=== PATIENT | female | born 1950 | race Hispanic/Latino ===

== ENCOUNTER 2017-08-30 15:36 | Inpatient (IN) | payer MEDICARE, BC ==
[2017-08-30] MEDS ORDERED: Albuterol-Ipratrop 3 mg / 0.5 (3 ml) UD INH STA ×3 (16:11→17:56)
[2017-08-30 16:33] LABS: ABG ALLEN TEST YES; ARTERIAL BLOOD GAS HCO3 39.6 mmol/L (21-28); ARTERIAL BLOOD GAS O2 SAT 90.3 % (95-98); ARTERIAL BLOOD GAS PCO2 86 mm/Hg (35-45); ARTERIAL BLOOD GAS PH 7.37 (7.35-7.45); ARTERIAL BLOOD GAS PO2 44 mm/Hg (80-100); ARTERIAL BLOOD GAS TCO2 52.3 mmol/L (22-28)
[2017-08-30 16:44] LABS: BASO % 0.4 % (0.0-2.0); EOS # 0.1 K/uL (0.0-0.7); EOS % 1.3 % (0.0-4.0); HEMOGLOBIN 9.6 g/dL (12.0-16.0); LYMPH # 2.1 K/uL (1.0-4.3); LYMPH % 21.9 % (20.0-40.0); MEAN CELL VOLUME 82.1 fl (81.0-99.0); MEAN CORPUSCULAR HEMOGLOBIN 24.2 pg (27.0-31.0); MEAN CORPUSCULAR HGB CONC 29.4 g/dL (33.0-37.0); MEAN PLATELET VOLUME 7.4 fl (7.2-11.7); MONO # 0.8 K/uL (0.0-0.8); MONO % 8.3 % (0.0-10.0); NEUT # 6.7 K/uL (1.8-7.0); NEUT % 68.1 % (50.0-75.0); RBC 3.99 Mil/uL (3.80-5.20); WHITE BLOOD COUNT 9.8 K/uL (4.8-10.8)
[2017-08-30 17:01] LABS: PARTIAL THROMBOPLASTIN TIME 28.5 Seconds (25.6-37.1)
--- NOTE | 2017-08-30 17:13 | ED PDOC ---
HPI: SOB/CHF/COPD Time Seen by Provider: 08/30/17 15:51 Chief Complaint (Nursing): Shortness Of Breath Chief Complaint (Provider): Shortness of breath History Per: Patient History/Exam Limitations: no limitations Onset/Duration Of Symptoms: Days (x2) Current Symptoms Are (Timing): Still Present Additional Complaint(s): 67 year old female presents to the ED complaining of having worsening SOB for the past 2 days. Daughter says patient seems lethargic with generalized weakness and sleepy. Patient is on 2L O2 at home. She is also complaining of diarrhea for 3 days and abdominal pain but is not currently on any antibiotics. Denies fever, CP, cough, nausea, and vomiting. Past Medical History Reviewed: Historical Data, Nursing Documentation, Vital Signs Vital Signs: Last Vital Signs Temp 98.2 F 09/01/17 12:00 Pulse 122 H 09/01/17 12:00 Resp 18 09/01/17 12:00 BP 110/67 09/01/17 12:00 Pulse Ox 92 L 09/01/17 12:00 - Medical History PMH: Anemia, CAD, CHF, COPD, Diabetes (type II), Emphysema, HTN, Kidney Stones, Peripheral Edema, Pneumonia (X 4), Chronic Kidney Disease, Sleep Apnea Denies: Hyperthyroidism, Hypothyroidism - Surgical History Surgical History: Cholecystectomy, Coronary Stent, Tonsillectomy Denies: Pacemaker - Family History Family History: States: Diabetes - Social History Current smoker - smoking cessation education provided: No Ex-Smoker (has not smoked in the last 12 months): Yes Alcohol: None Drugs: Denies - Home Medications Home Medications: Ambulatory Orders Medication Instructions Recorded Clopidogrel [Plavix] 75 mg PO DAILY 01/29/16 Furosemide [Lasix] 40 mg PO DAILY 01/29/16 Liraglutide [Victoza 3-Hira] 1.8 mg SQ DAILY 01/29/16 Valsartan [Diovan] 40 mg PO DAILY 01/29/16 Ferrous Sulfate [Ferosul] 325 mg PO BID 01/30/16 Aspirin [Ecotrin] 81 mg PO DAILY 08/30/17 Cetirizine HCl [Zyrtec] 10 mg PO DAILY 08/30/17 Dapagliflozin Propanediol [Farxiga] 10 mg PO DAILY 08/30/17 Empagliflozin/Metformin HCl 1 each PO DAILY 08/30/17 [Synjardy Xr 12.5-1,000 mg Tab] Ergocalciferol (Vitamin D2) 1.25 mg PO QWK 08/30/17 [Vitamin D2] Escitalopram [Lexapro] 20 mg PO DAILY 08/30/17 Ezetimibe/Simvastatin [Vytorin 1 tab PO DAILY 08/30/17 10-10 mg Tablet] Glipizide [Glipizide Xl] 5 mg PO BID 08/30/17 Glycopyrrolate/Formoterol Fum 10.7 gm IH BID 08/30/17 [Bevespi Aerosphere Inhaler] Icosapent Ethyl [Vascepa] 2 cap PO BID 08/30/17 Linaclotide [Linzess] 145 mcg PO DAILY 08/30/17 Pantoprazole Sodium [Protonix] 40 mg PO DAILY 08/30/17 Pregabalin [Lyrica] 50 mg PO DAILY 08/30/17 Vortioxetine Hydrobromide 10 mg PO HS 08/30/17 [Trintellix] - Allergies Allergies/Adverse Reactions: Allergies Allergy/AdvReac Type Severity Reaction Status Date / Time No Known Allergies Allergy Verified 08/30/17 15:38 Review of Systems ROS Statement: Except As Marked, All Systems Reviewed And Found Negative Constitutional: Positive for: Weakness (generalized), Other (Lethargic). Negative for: Fever Cardiovascular: Negative for: Chest Pain Respiratory: Positive for: Shortness of Breath. Negative for: Cough Gastrointestinal: Positive for: Abdominal Pain, Diarrhea. Negative for: Nausea , Vomiting Physical Exam - Reviewed Nursing Documentation Reviewed: Yes Vital Signs Reviewed: Yes - Physical Exam Appears: Positive for: Non-toxic, No Acute Distress (speaking full sentences) Head Exam: Positive for: ATRAUMATIC, NORMOCEPHALIC Skin: Positive for: Normal Color, Warm, Dry Eye Exam: Positive for: Normal appearance Neck: Positive for: Normal, Painless ROM Cardiovascular/Chest: Positive for: Regular Rate, Rhythm. Negative for: Murmur Respiratory: Positive for: Wheezing (Bilateral) Gastrointestinal/Abdominal: Positive for: Soft, Other (morbidly obese). Negative for: Tenderness Extremity: Positive for: Normal ROM Neurologic/Psych: Positive for: Alert, Oriented (x3). Negative for: Motor/ Sensory Deficits - Laboratory Results Result Diagrams: 09/01/17 11:11 09/01/17 11:11 - ECG Interpretation Of ECG: NSR @ 91, LAD, RBBB. O2 Sat by Pulse Oximetry: 92 (RA) Pulse Ox Interpretation: Abnormal Medical Decision Making Medical Decision Making: Initial Impression: COPD exacerbation, diarrhea Initial Plan: ABG shock panel CT abd/pelvis ECG CMP Troponin ED urine dipstick CBC PTT Prothrombin Chest X-ray Albuterol 3mL INH Methylprednisolone 125mg IV Bipap procedure Peak flow Urinalysis Accession No. : [id number] Patient Name / ID : SIMONE DEGROOT / [id number] Exam Date : 08/30/2017 16:19:16 ( Approved ) Study Comment : Sex / Age : F / 67Y Creator : Mic Humphries MD Dictator : Mic Humphries MD Resolution Expert : Snow Groomer : Mic Humphries MD Approver2 : Report Date : 08/30/2017 17:44:20 My Comment : HISTORY: SOB COMPARISON: Chest radiograph dated 11/29/2016. FINDINGS: LUNGS: No active pulmonary disease. PLEURA: No significant pleural effusion identified, no pneumothorax apparent. CARDIOVASCULAR: Atherosclerotic aortic calcifications. Cardiomediastinal silhouette stably enlarged. OSSEOUS STRUCTURES: Unchanged. VISUALIZED UPPER ABDOMEN: Normal. OTHER FINDINGS: None. IMPRESSION: No active disease. Scribe Attestation: Documented by Vitaliy Rose acting as a scribe for Tran Sanchez MD. Provider Scribe Attestation: All medical record entries made by the Scribe were at my direction and personally dictated by me. I have reviewed the chart and agree that the record accurately reflects my personal performance of the history, physical exam, medical decision making, and the department course for this patient. I have also personally directed, reviewed, and agree with the discharge instructions and disposition. Disposition - Clinical Impression Clinical Impression: COPD exacerbation, CHF (congestive heart failure) - Patient ED Disposition Is Patient to be Admitted: Yes - Disposition Disposition Time: 18:20 Condition: GUARDED - Pt Status Changed To: Hospital Disposition Of: Inpatient - Admit Certification Admit to Inpatient:: After my assessment, the patient will require hospitalization for at least two midnights. This is because of the severity of symptoms shown, intensity of services needed, and/or the medical risk in this patient being treated as an outpatient. - POA Present On Arrival: None
[2017-08-30 17:15] LABS: ALB/GLOB RATIO 1.1 (1.0-2.1); ALT/SGPT 29 U/L (9-52); AST/SGOT 27 U/L (14-36); BLOOD UREA NITROGEN 17 mg/dl (7-17); CALCIUM 9.5 mg/dL (8.4-10.2); GFR AFRICAN-AMERICAN > 60; GFR NON-AFRICAN AMERICAN > 60
[2017-08-30] MEDS ORDERED: Iohexol 300 100 ML IJ ONE (17:20)
[2017-08-30] MEDS ORDERED: Sodium Chloride 0.9% 100 ML ONE (17:20)
--- NOTE | 2017-08-30 17:45 | RAD ---
HISTORY: SOB COMPARISON: Chest radiograph dated 11/29/2016. FINDINGS: LUNGS: No active pulmonary disease. PLEURA: No significant pleural effusion identified, no pneumothorax apparent. CARDIOVASCULAR: Atherosclerotic aortic calcifications. Cardiomediastinal silhouette stably enlarged. OSSEOUS STRUCTURES: Unchanged. VISUALIZED UPPER ABDOMEN: Normal. OTHER FINDINGS: None. IMPRESSION: No active disease.
--- NOTE | 2017-08-30 18:10 | CT ---
PROCEDURE: CT Abdomen and Pelvis with contrast HISTORY: Diarrhea COMPARISON: None. TECHNIQUE: Contrast dose: 95 cc Omnipaque 300 Radiation dose: Total exam DLP = 1052.88 mGy-cm. This CT exam was performed using one or more of the following dose reduction techniques: Automated exposure control, adjustment of the mA and/or kV according to patient size, and/or use of iterative reconstruction technique. FINDINGS: LOWER THORAX: Unremarkable. LIVER: Hepatomegaly, hepatic steatosis. No focal hepatic abnormalities. GALLBLADDER AND BILE DUCTS: Status post cholecystectomy. No abnormality is seen in the gallbladder fossa. PANCREAS: Unremarkable. No gross lesion or ductal dilatation. SPLEEN: Unremarkable. ADRENALS: Unremarkable. No mass. KIDNEYS AND URETERS: Right kidney in ureter: Nonobstructing 7 mm calculus in the right renal pelvis. Incidental simple cysts the largest projects off the inferior aspect of the right kidney measuring 2.2 cm. Left kidney in ureter: Unremarkable. No hydronephrosis. No solid mass. VASCULATURE: Unremarkable. No aortic aneurysm. Incidental finding(s): Persistent left IVC common normal variant BOWEL: Diverticulosis without an acute inflammatory component or other associated pathologic process. Constipation without fecal impaction or obstruction. APPENDIX: No abnormalities to suggest acute appendicitis. No right lower quadrant inflammatory processes identified. PERITONEUM: Unremarkable. No free fluid. No free air. LYMPH NODES: Unremarkable. No enlarged lymph nodes. BLADDER: Unremarkable. REPRODUCTIVE: Unremarkable. BONES: No acute fracture. OTHER FINDINGS: Inflammatory changes sub gluteal regions bilaterally. Decubitus ulcers should be considered particularly on the right. No drainable collection or sinus tract or fistulous communication. IMPRESSION: Nonobstructing 7 mm calculus in the right renal pelvis. Hepatomegaly, hepatic steatosis without focal abnormality. Additional benign and/or incidental findings described above.
[2017-08-30 19:42] LABS: SQUAMOUS EPITHIAL 2 /hpf (0-5); URINE BILIRUBIN NEGATIVE (NEGATIVE); URINE BLOOD NEGATIVE (NEGATIVE); URINE CLARITY CLEAR (Clear); URINE COLOR YELLOW (YELLOW); URINE GLUCOSE (UA) >=500 mg/dL (Normal); URINE LEUKOCYTE ESTERASE NEG Leu/uL (Negative); URINE PROTEIN NEGATIVE (NEGATIVE); URINE UROBILINOGEN 0.2-1.0 mg/dL (0.2-1.0)
[2017-08-30] MEDS ORDERED: Ergocalciferol 50,000 Intl Units Cap PO SCH (22:00)
[2017-08-30] MEDS ORDERED: Dextrose 50% SYRINGE Inj (50 ml) IV PRN (23:06)
[2017-08-30] MEDS: Insulin Regular 100 units/ml SC SCH (23:45)
[2017-08-31] MEDS ORDERED: methylPREDNISolone 60 MG in Sodium Chloride 0.9% 50 ML IVPB SCH (01:00)
[2017-08-31] MEDS: Insulin Regular 100 units/ml SC SCH ×4 (07:04→22:20)
[2017-08-31] MEDS: Albuterol-Ipratrop 3 mg / 0.5 (3 ml) UD INH SCH ×4 (07:46→19:09)
[2017-08-31] MEDS ORDERED: FORMOTEROL FUM IH SCH (09:00)
[2017-08-31] MEDS ORDERED: GlipiZIDE 5 mg SR Tab PO SCH (09:00)
[2017-08-31] MEDS ORDERED: GLYCOPYRROLATE IH SCH (09:00)
[2017-08-31] MEDS ORDERED: METFORMIN HCL PO SCH (09:00)
[2017-08-31] MEDS ORDERED: EZETIMIBE PO SCH (09:00)
[2017-08-31] MEDS ORDERED: LIRAGLUTIDE 1.8 MG SQ SCH (09:00)
[2017-08-31] MEDS ORDERED: Enoxaparin 40 mg Syringe SC SCH (09:00)
[2017-08-31] MEDS ORDERED: SIMVASTATIN PO SCH (09:00)
[2017-08-31] MEDS ORDERED: EMPAGLIFLOZIN PO SCH (09:00)
--- NOTE | 2017-08-31 09:47 | CP.PCM.CON ---
History of Present Illness - History of Present Illness History of Present Illness: I was asked to see patient by Dr Joshi. Patient is a 67 year old female with PMH HTN, CAD s/p PCI RCA (2011) COPD who presents with dyspnea. She states symptom began about 4 days ago. She flelt dyspneic and lethargic. She was found to be hypercapneic. She states symptom are improved. Review of Systems - Constitutional Constitutional: absent: As Per HPI, Anorexia, Chills, Daytime Sleepiness, Excessive Sweating, Fatigue, Fever, Frequent Falls, Headache, Increased Appetite , Lethargy, Malaise, Night Sweats, Snoring, Sleep Apnea, Weight Gain, Weight Loss, Weakness, Other - EENT Eyes: absent: As Per HPI, Blind Spots, Blurred Vision, Change in Vision, Decreased Night Vision, Diplopia, Discharge, Dry Eye, Exophthalmos, Floaters, Irritation, Itchy Eyes, Loss of Peripheral Vision, Pain, Photophobia, Requires Corrective Lenses, Sees Flashes, Spots in Vision, Tunnel Vision, Other Visual Disturbances, Loss of Vision, Other Ears: absent: As Per HPI, Decreased Hearing, Ear Discharge, Ear Pain, Tinnitus, Abnormal Hearing, Disequilibrium, Dizziness, Other Nose/Mouth/Throat: absent: As Per HPI, Epistaxis, Nasal Congestion, Nasal Discharge, Nasal Obstruction, Nasal Trauma, Nose Pain, Post Nasal Drip, Sinus Pain, Sinus Pressure, Bleeding Gums, Change in Voice, Dental Pain, Dry Mouth, Dysphagia, Halitosis, Hoarsness, Lip Swelling, Mouth Lesions, Mouth Pain, Odynophagia, Sore Throat, Throat Swelling, Tongue Swelling, Facial Pain, Neck Pain, Neck Mass, Other - Cardiovascular Cardiovascular: absent: As Per HPI, Acrocyanosis, Chest Pain, Chest Pain at Rest , Chest Pain with Activity, Claudication, Diaphoresis, Dyspnea, Dyspnea on Exertion, Edema, Irregular Heart Rhythm, Pain Radiating to Arm/Neck/Jaw, Leg Edema, Leg Ulcers, Lightheadedness, Orthopnea, Palpitations, Paroxysmal Nocturnal Dyspnea, Pedal Edema, Radiating Pain, Rapid Heart Rate, Slow Heart Rate, Syncope, Other - Respiratory Respiratory: Dyspnea - Gastrointestinal Gastrointestinal: absent: As Per HPI, Abdominal Pain, Belching, Bloating, Change in Bowel Habits, Change in Stool Character, Coffee Ground Emesis, Constipation, Cramping, Diarrhea, Dyspepsia, Dysphagia, Early Satiety, Excessive Flatus, Fecal Incontinence, Heartburn, Hematemesis, Hematochezia, Loose Stools, Melena, Nausea, Odynophagia, Temesmus, Vomiting, Other - Genitourinary Genitourinary: absent: As Per HPI, Change in Urinary Stream, Difficulty Urinating, Dysuria, Flank Pain, Hematuria, Pyuria, Nocturia, Urinary Incontinence, Urinary Frequency, Urinary Hesitance, Urinary Urgency, Voiding Freq/Small Amts, Freq UTI, Hx Renal/Bladder Calculi, Hx /Renal Surgery, Bladder Distension, Other - Musculoskeletal Musculoskeletal: absent: As Per HPI, Abnormal Gait, Arthralgias, Atrophy, Back Pain, Deformity, Joint Swelling, Limited Range of Motion, Loss of Height, Muscle Cramps, Muscle Weakness, Myalgias, Neck Pain, Numbness, Radiating Pain into Limb, Stiffness, Tingling, Other - Integumentary Integumentary: absent: As Per HPI, Acne, Alopecia, Bleeding Lesions, Change in Hair, Change in Nails, Change in Pigmentation, Changing Lesions, Dry Skin, Erythema, Furuncle, Hirsutism, Lesions, New Lesions, Non-Healing Lesions, Photosensitivity, Pruritus, Rash, Skin Pain, Skin Ulcer, Sores, Striae, Swelling , Unusual Bruising, Wounds, Jaundice, Other - Neurological Neurological: absent: As Per HPI, Abnormal Gait, Abnormal Hearing, Abnormal Movements, Abnormal Speech, Behavioral Changes, Burning Sensations, Confusion, Convulsions, Disequilibrium, Dizziness, Numbness, Focal Weakness, Frequent Falls , Headaches, Lack of Coordination, Loss of Vision, Memory Loss, Paresthesias, Radicular Pain, Restless Legs, Sensory Deficit, Syncope, Tingling, Tremor, Vertigo, Weakness, Other Visual Disturbances, Other - Psychiatric Psychiatric: absent: As Per HPI, Abnormal Sleep Pattern, Anhedonia, Anxiety, Auditory Hallucinations, Behavioral Changes, Change in Appetite, Change in Libido, Confusion, Depression, Difficulty Concentrating, Hallucinations, Homicidal Ideation, Hopelessness, Irritability, Memory Loss, Mood Swings, Panic Attacks, Paranoia, Suicidal Ideation, Visual Hallucinations, Tactile Hallucinations, Other - Endocrine Endocrine: absent: As Per HPI, Change in Body Appearance, Change in Libido, Cold Intolorance, Deepening of Voice, Excessive Sweating, Fatigue, Flushing, Heat Intolorance, Increase in Ring/Shoe/Hat Size, Palpitations, Polydipsia, Polyphagia, Polyuria, Other - Hematologic/Lymphatic Hematologic: absent: As Per HPI, Easy Bleeding, Easy Bruising, Lymphadenopathy, Other Past Patient History - Past Medical History & Family History Past Medical History?: Yes - Past Social History Smoking Status: Former Smoker - CARDIAC Hx Cardiac Disorders: Yes Hx Congestive Heart Failure: Yes Hx Hypertension: Yes Hx Pacemaker: No Hx Peripheral Edema: Yes - PULMONARY Hx Respiratory Disorders: Yes Hx Chronic Obstructive Pulmonary Disease (COPD): Yes Hx Emphysema: Yes Hx Pneumonia: Yes (X 4) Hx Sleep Apnea: Yes - NEUROLOGICAL Hx Neurological Disorder: Yes Other/Comment: Peripheral neuropathy - HEENT Hx HEENT Problems: No - RENAL Hx Chronic Kidney Disease: Yes Hx Kidney Stones: Yes - ENDOCRINE/METABOLIC Hx Endocrine Disorders: Yes Hx Diabetes Mellitus Type 2: Yes Hx Hyperthyroidism: No Hx Hypothyroidism: No - HEMATOLOGICAL/ONCOLOGICAL Hx Blood Disorders: Yes Hx Anemia: Yes - INTEGUMENTARY Hx Dermatological Problems: Yes Hx Basil Cell: Yes (Nose) - MUSCULOSKELETAL/RHEUMATOLOGICAL Hx Musculoskeletal Disorders: No Hx Falls: No - GASTROINTESTINAL Hx Gastrointestinal Disorders: No - GENITOURINARY/GYNECOLOGICAL Hx Genitourinary Disorders: Yes Other/Comment: Nephrolithiasis - PSYCHIATRIC Hx Psychophysiologic Disorder: No Hx Substance Use: No - SURGICAL HISTORY Hx Surgeries: Yes Hx Cholecystectomy: Yes Hx Coronary Stent: Yes Hx Tonsillectomy: Yes - ANESTHESIA Hx Anesthesia: Yes Hx Anesthesia Reactions: No Hx Malignant Hyperthermia: No Meds Allergies/Adverse Reactions: Allergies Allergy/AdvReac Type Severity Reaction Status Date / Time No Known Allergies Allergy Verified 08/30/17 15:38 - Medications Medications: Current Medications Albuterol/Ipratropium (Duoneb 3 Mg/0.5 Mg (3 Ml) Ud) 3 ml INH RQID [facility] Last Admin: 08/31/17 07:46 Dose: 3 ml Aspirin (Ecotrin) 81 mg PO DAILY [facility] Clopidogrel Bisulfate (Plavix) 75 mg PO DAILY [facility] Dextrose (Dextrose 50% Inj) 0 ml IV STAT PRN; Protocol PRN Reason: Hypoglycemia Protocol Dextrose (Glutose 15) 0 gm PO ONCE PRN; Protocol PRN Reason: Hypoglycemia Protocol Enoxaparin Sodium (Lovenox) 40 mg SC DAILY [facility] PRN Reason: Protocol Ergocalciferol (Drisdol 50,000 Intl Units Cap) 1 cap PO QWK [facility] Escitalopram Oxalate (Lexapro) 20 mg PO DAILY [facility] Ferrous Sulfate (Feosol) 325 mg PO BID [facility] Furosemide (Lasix) 40 mg PO DAILY [facility] Glipizide (Glucotrol Xl) 5 mg PO BID [facility] Home Med (Dapagliflozin Propanediol [Farxiga]) 10 mg PO DAILY [facility] Home Med (Empagliflozin/Metformin Hcl [Synjardy Xr 12.5-1,000 Mg Tab]) 1 each PO DAILY [facility] Home Med (Ezetimibe/Simvastatin [Vytorin 10-10 Mg Tablet]) 1 tab PO DAILY [facility] Home Med (Glycopyrrolate/Formoterol Fum [Bevespi Aerosphere Inhaler]) 10.7 gm IH BID [facility] Home Med (Linaclotide [Linzess]) 145 mcg PO DAILY [facility] Home Med (Liraglutide [Victoza 3-Hira]) 1.8 mg SQ DAILY [facility] Home Med (Vortioxetine Hydrobromide [Trintellix]) 10 mg PO HS [facility] Insulin Human Regular (Humulin R) 0 units [facility] PRN Reason: Protocol Last Admin: 08/31/17 07:04 Dose: 2 units Methylprednisolone (Solu-Medrol) 60 mg IV Q8 [facility] Last Admin: 08/31/17 00:09 Dose: 60 mg Ilcmj-5-Fnmw Ethyl Esters (Lovaza) 2 gm PO BID [facility] Pantoprazole Sodium (Protonix Ec Tab) 40 mg PO DAILY [facility] Potassium Chloride (K-Dur 20 Meq Er Tab) 20 meq PO BID [facility] Pregabalin (Lyrica) 50 mg PO DAILY [facility] Valsartan (Diovan) 40 mg PO DAILY [facility] Physical Exam - Constitutional Appears: Non-toxic - Head Exam Head Exam: NORMAL INSPECTION - Eye Exam Eye Exam: Normal appearance - ENT Exam ENT Exam: Mucous Membranes Moist - Neck Exam Neck exam: Positive for: Full Rom - Respiratory Exam Respiratory Exam: Decreased Breath Sounds, Wheezes - Cardiovascular Exam Cardiovascular Exam: REGULAR RHYTHM - GI/Abdominal Exam GI & Abdominal Exam: Normal Bowel Sounds - Rectal Exam Rectal Exam: Deferred - Extremities Exam Extremities exam: Positive for: pedal edema - Back Exam Back exam: NORMAL INSPECTION - Neurological Exam Neurological exam: Alert, Oriented x3 - Psychiatric Exam Psychiatric exam: Normal Affect - Skin Skin Exam: Normal Color Results - Vital Signs Recent Vital Signs: Last Vital Signs Temp 98.1 F 08/31/17 08:00 Pulse 74 08/31/17 08:00 Resp 18 08/31/17 08:00 BP 120/75 08/31/17 08:00 Pulse Ox 94 L 08/31/17 08:00 - Labs Result Diagrams: 08/30/17 16:39 08/30/17 16:39 Labs: Laboratory Results - last 24 hr 08/30/17 08/30/17 08/30/17 16:24 16:39 16:39 WBC 9.8 RBC 3.99 Hgb 9.6 L Hct 32.8 L MCV 82.1 D MCH 24.2 L MCHC 29.4 L RDW 17.0 H Plt Count 313 MPV 7.4 Neut % (Auto) 68.1 Lymph % (Auto) 21.9 [place] % (Auto) 8.3 Eos % (Auto) 1.3 Baso % (Auto) 0.4 Neut # (Auto) 6.7 Lymph # (Auto) 2.1 [place] # (Auto) 0.8 Eos # (Auto) 0.1 Baso # (Auto) 0.0 PT INR APTT pCO2 86 H* pO2 44 L* HCO3 39.6 H ABG pH 7.37 ABG Total CO2 52.3 H ABG O2 Saturation 90.3 L ABG Base Excess 19.5 H David Test Yes ABG Potassium 3.7 A-a O2 Difference 48.0 Sodium 138.0 141 Chloride 101.0 92 L Glucose 126 H Lactate 0.8 Vent Mode 2lnc FiO2 28.0 Crit Value Called To ozzy Sanchez md Crit Value Called By [facility] Crit Value Read Back Y Blood Gas Notified Time 1633 Potassium 4.1 Carbon Dioxide 43 H* Anion Gap 10 BUN 17 Creatinine 0.5 L Est GFR ( Amer) > 60 Est GFR (Non-Af Amer) > 60 POC Glucose (mg/dL) Random Glucose 121 H Calcium 9.5 Total Bilirubin 1.1 AST 27 ALT 29 Alkaline Phosphatase 65 Troponin I 0.0150 NT-Pro-B Natriuret Pep Total Protein 7.5 Albumin 4.0 Globulin 3.5 Albumin/Globulin Ratio 1.1 Arterial Blood Potassium 3.7 Urine Color Urine Clarity Urine pH Ur Specific [place] Urine Protein Urine Glucose (UA) Urine Ketones Urine Blood Urine Nitrate Urine Bilirubin Urine Urobilinogen Ur Leukocyte Esterase Urine RBC (Auto) Urine Microscopic WBC Ur Squamous Epith Cells 08/30/17 08/30/17 08/30/17 16:39 18:30 18:46 WBC RBC Hgb Hct MCV MCH MCHC RDW Plt Count MPV Neut % (Auto) Lymph % (Auto) [place] % (Auto) Eos % (Auto) Baso % (Auto) Neut # (Auto) Lymph # (Auto) [place] # (Auto) Eos # (Auto) Baso # (Auto) PT 11.0 INR 1.0 APTT 28.5 pCO2 pO2 HCO3 ABG pH ABG Total CO2 ABG O2 Saturation ABG Base Excess David Test ABG Potassium A-a O2 Difference Sodium Chloride Glucose Lactate Vent Mode FiO2 Crit Value Called To Crit Value Called By Crit Value Read Back Blood Gas Notified Time Potassium Carbon Dioxide Anion Gap BUN Creatinine Est GFR ( Amer) Est GFR (Non-Af Amer) POC Glucose (mg/dL) Random Glucose Calcium Total Bilirubin AST ALT Alkaline Phosphatase Troponin I NT-Pro-B Natriuret Pep 1040 H Total Protein Albumin Globulin Albumin/Globulin Ratio Arterial Blood Potassium Urine Color Yellow Urine Clarity Clear Urine pH 5.0 Ur Specific [place] 1.035 H Urine Protein Negative Urine Glucose (UA) >=500 Urine Ketones Negative Urine Blood Negative Urine Nitrate Negative Urine Bilirubin Negative Urine Urobilinogen 0.2-1.0 Ur Leukocyte Esterase Neg Urine RBC (Auto) 5 H Urine Microscopic WBC 7 H Ur Squamous Epith Cells 2 08/30/17 08/30/17 08/31/17 21:51 23:55 05:11 WBC RBC Hgb Hct MCV MCH MCHC RDW Plt Count MPV Neut % (Auto) Lymph % (Auto) [place] % (Auto) Eos % (Auto) Baso % (Auto) Neut # (Auto) Lymph # (Auto) [place] # (Auto) Eos # (Auto) Baso # (Auto) PT INR APTT pCO2 pO2 HCO3 ABG pH ABG Total CO2 ABG O2 Saturation ABG Base Excess David Test ABG Potassium A-a O2 Difference Sodium Chloride Glucose Lactate Vent Mode FiO2 Crit Value Called To Crit Value Called By Crit Value Read Back Blood Gas Notified Time Potassium Carbon Dioxide Anion Gap BUN Creatinine Est GFR ( Amer) Est GFR (Non-Af Amer) POC Glucose (mg/dL) 309 H 194 H Random Glucose Calcium Total Bilirubin AST ALT Alkaline Phosphatase Troponin I < 0.0120 NT-Pro-B Natriuret Pep Total Protein Albumin Globulin Albumin/Globulin Ratio Arterial Blood Potassium Urine Color Urine Clarity Urine pH Ur Specific [place] Urine Protein Urine Glucose (UA) Urine Ketones Urine Blood Urine Nitrate Urine Bilirubin Urine Urobilinogen Ur Leukocyte Esterase Urine RBC (Auto) Urine Microscopic WBC Ur Squamous Epith Cells 08/31/17 08:11 WBC RBC Hgb Hct MCV MCH MCHC RDW Plt Count MPV Neut % (Auto) Lymph % (Auto) [place] % (Auto) Eos % (Auto) Baso % (Auto) Neut # (Auto) Lymph # (Auto) [place] # (Auto) Eos # (Auto) Baso # (Auto) PT INR APTT pCO2 pO2 HCO3 ABG pH ABG Total CO2 ABG O2 Saturation ABG Base Excess David Test ABG Potassium A-a O2 Difference Sodium Chloride Glucose Lactate Vent Mode FiO2 Crit Value Called To Crit Value Called By Crit Value Read Back Blood Gas Notified Time Potassium Carbon Dioxide Anion Gap BUN Creatinine Est GFR ( Amer) Est GFR (Non-Af Amer) POC Glucose (mg/dL) Random Glucose Calcium Total Bilirubin AST ALT Alkaline Phosphatase Troponin I 0.0120 NT-Pro-B Natriuret Pep Total Protein Albumin Globulin Albumin/Globulin Ratio Arterial Blood Potassium Urine Color Urine Clarity Urine pH Ur Specific [place] Urine Protein Urine Glucose (UA) Urine Ketones Urine Blood Urine Nitrate Urine Bilirubin Urine Urobilinogen Ur Leukocyte Esterase Urine RBC (Auto) Urine Microscopic WBC Ur Squamous Epith Cells - EKG Data EKG Interpreted by: Myself Assessment & Plan (1) HTN (hypertension) Assessment and Plan: blood pressure control Status: Acute (2) Chr obstructive pulmonary disease w/ acute lower respiratory infxn Assessment and Plan: likley exacerbation. recommend bronchodilator therapy Status: Acute (3) CAD (coronary artery disease) Assessment and Plan: ASA/Plavix. last stress test in 2014 was normal. Will schedule outpatient stress test Status: Chronic Priority: High
--- NOTE | 2017-08-31 10:17 | CP.PCM.CON ---
History of Present Illness - History of Present Illness History of Present Illness: This 67 year old female is known to me from prior admissions and the outpatient setting. She is a former cigarette smoker with chronic bronchitis/emphysema on outpatient maintenance regimen with glycopyrrolate/formoterol (Bevespi) 2 puffs every 12 hours. She does have comorbid obstructive sleep apnea which is mild and has not required nCPAP therapy. She has had previously been admitted with hypercapnic respiratory failure and returns now with acute on chronic CO2 retention. She has noted increasing SOB with excessive somnolence for about 5 days preceding this admission. She has responded well to the use of NPPV with BiPAP ventilation and presently is awake, coherent and comfortable. Her admitting chest x-ray shows increased bronchovascular markings, but no infiltrates of pleural effusion. Review of Systems - Review of Systems All systems: reviewed and no additional remarkable complaints except - Constitutional Constitutional: Daytime Sleepiness, Sleep Apnea - Respiratory Respiratory: Cough, Dyspnea on Exertion - Neurological Neurological: Confusion, Restless Legs Past Patient History - Past Medical History & Family History Past Medical History?: Yes Pertinent Family History: liver cancer,diabetes,CAD - Past Social History Smoking Status: Former Smoker Chewing Tobacco Use: No Cigar Use: No Alcohol: Social Drugs: Denies Home Situation {Lives}: With Family - CARDIAC Hx Congestive Heart Failure: Yes Hx Hypertension: Yes Hx Pacemaker: No Hx Peripheral Edema: Yes Hx Peripheral Vascular Disease: Yes - PULMONARY Hx Bronchitis: Yes Hx Chronic Obstructive Pulmonary Disease (COPD): Yes Hx Emphysema: Yes Hx Pneumonia: Yes (X 4) Hx Sleep Apnea: Yes (mild) - NEUROLOGICAL Hx Neurological Disorder: Yes Other/Comment: Peripheral neuropathy - HEENT Hx HEENT Problems: No - RENAL Hx Kidney Stones: Yes - ENDOCRINE/METABOLIC Hx Diabetes Mellitus Type 2: Yes - HEMATOLOGICAL/ONCOLOGICAL Hx Anemia: Yes - INTEGUMENTARY Hx Basil Cell: Yes (Nose) - MUSCULOSKELETAL/RHEUMATOLOGICAL Hx Musculoskeletal Disorders: No Hx Falls: No - GASTROINTESTINAL Hx Gastrointestinal Disorders: No - GENITOURINARY/GYNECOLOGICAL Hx Genitourinary Disorders: Yes Other/Comment: Nephrolithiasis - PSYCHIATRIC Hx Psychophysiologic Disorder: No Hx Substance Use: No - SURGICAL HISTORY Hx Surgeries: Yes Hx Angioplasty: Yes Hx Cholecystectomy: Yes Hx Coronary Stent: Yes (approx 6 years ago) Hx Tonsillectomy: Yes Other/Comment: basal cell resected on nose - ANESTHESIA Hx Anesthesia: Yes Hx Anesthesia Reactions: No Hx Malignant Hyperthermia: No Meds Allergies/Adverse Reactions: Allergies Allergy/AdvReac Type Severity Reaction Status Date / Time No Known Allergies Allergy Verified 08/30/17 15:38 - Medications Medications: Current Medications Albuterol/Ipratropium (Duoneb 3 Mg/0.5 Mg (3 Ml) Ud) 3 ml INH RQID [facility] Last Admin: 08/31/17 07:46 Dose: 3 ml Aspirin (Ecotrin) 81 mg PO DAILY [facility] Clopidogrel Bisulfate (Plavix) 75 mg PO DAILY [facility] Dextrose (Dextrose 50% Inj) 0 ml IV STAT PRN; Protocol PRN Reason: Hypoglycemia Protocol Dextrose (Glutose 15) 0 gm PO ONCE PRN; Protocol PRN Reason: Hypoglycemia Protocol Enoxaparin Sodium (Lovenox) 40 mg SC DAILY [facility] PRN Reason: Protocol Ergocalciferol (Drisdol 50,000 Intl Units Cap) 1 cap PO QWK [facility] Escitalopram Oxalate (Lexapro) 20 mg PO DAILY [facility] Ferrous Sulfate (Feosol) 325 mg PO BID [facility] Furosemide (Lasix) 40 mg PO DAILY [facility] Glipizide (Glucotrol Xl) 5 mg PO BID [facility] Home Med (Dapagliflozin Propanediol [Farxiga]) 10 mg PO DAILY [facility] Home Med (Empagliflozin/Metformin Hcl [Synjardy Xr 12.5-1,000 Mg Tab]) 1 each PO DAILY [facility] Home Med (Ezetimibe/Simvastatin [Vytorin 10-10 Mg Tablet]) 1 tab PO DAILY [facility] Home Med (Glycopyrrolate/Formoterol Fum [Bevespi Aerosphere Inhaler]) 10.7 gm IH BID [facility] Home Med (Linaclotide [Linzess]) 145 mcg PO DAILY [facility] Home Med (Liraglutide [Victoza 3-Hira]) 1.8 mg SQ DAILY [facility] Home Med (Vortioxetine Hydrobromide [Trintellix]) 10 mg PO HS [facility] Insulin Human Regular (Humulin R) 0 units SC ACHS [facility] PRN Reason: Protocol Last Admin: 08/31/17 07:04 Dose: 2 units Methylprednisolone (Solu-Medrol) 60 mg IV Q8 [facility] Last Admin: 08/31/17 00:09 Dose: 60 mg [id number] Ethyl Esters (Lovaza) 2 gm PO BID [facility] Pantoprazole Sodium (Protonix Ec Tab) 40 mg PO DAILY [facility] Potassium Chloride (K-Dur 20 Meq Er Tab) 20 meq PO BID [facility] Pregabalin (Lyrica) 50 mg PO DAILY [facility] Valsartan (Diovan) 40 mg PO DAILY [facility] Physical Exam - Additional Findings Additional findings: Alert and awake, not in distress, oriented. Neck is supple, trachea midline, no JVD, no carotid bruit. Nares are patent bilaterally w/o bleeding or exudate. Pharynx is pink with moist membranes, no exudate. No dullness on chest percussion, increased AP diameter of thorax. Breath sounds are markedly diminished bilaterally without wheezes. No bronchial breathing or egophony, few scattered rhonchi in lower lobes. Rare dry basal rales with deep breathing. Heart sounds are distant, rhythm is regular, soft systolic murmur at base. Abdomen is soft, fleshy and non-tender with normal bowel sounds. Trace dependant edema of LE's, slightly more right than left. Large varicose veins in LE's more right than left. Results - Vital Signs Recent Vital Signs: Last Vital Signs Temp 98.1 F 08/31/17 08:00 Pulse 74 08/31/17 08:00 Resp 18 08/31/17 08:00 BP 120/75 08/31/17 08:00 Pulse Ox 94 L 08/31/17 08:00 - Labs Result Diagrams: 08/30/17 16:39 08/30/17 16:39 Labs: Laboratory Results - last 24 hr 08/30/17 08/30/17 08/30/17 16:24 16:39 16:39 WBC 9.8 RBC 3.99 Hgb 9.6 L Hct 32.8 L MCV 82.1 D MCH 24.2 L MCHC 29.4 L RDW 17.0 H Plt Count 313 MPV 7.4 Neut % (Auto) 68.1 Lymph % (Auto) 21.9 Andrews % (Auto) 8.3 Eos % (Auto) 1.3 Baso % (Auto) 0.4 Neut # (Auto) 6.7 Lymph # (Auto) 2.1 Andrews # (Auto) 0.8 Eos # (Auto) 0.1 Baso # (Auto) 0.0 PT INR APTT pCO2 86 H* pO2 44 L* HCO3 39.6 H ABG pH 7.37 ABG Total CO2 52.3 H ABG O2 Saturation 90.3 L ABG Base Excess 19.5 H David Test Yes ABG Potassium 3.7 A-a O2 Difference 48.0 Sodium 138.0 141 Chloride 101.0 92 L Glucose 126 H Lactate 0.8 Vent Mode 2lnc FiO2 28.0 Crit Value Called To ozzy Sanchez md Crit Value Called By Yg bruce Crit Value Read Back Y Blood Gas Notified Time 1633 Potassium 4.1 Carbon Dioxide 43 H* Anion Gap 10 BUN 17 Creatinine 0.5 L Est GFR ( Amer) > 60 Est GFR (Non-Af Amer) > 60 POC Glucose (mg/dL) Random Glucose 121 H Calcium 9.5 Total Bilirubin 1.1 AST 27 ALT 29 Alkaline Phosphatase 65 Troponin I 0.0150 NT-Pro-B Natriuret Pep Total Protein 7.5 Albumin 4.0 Globulin 3.5 Albumin/Globulin Ratio 1.1 Arterial Blood Potassium 3.7 Urine Color Urine Clarity Urine pH Ur Specific [place] Urine Protein Urine Glucose (UA) Urine Ketones Urine Blood Urine Nitrate Urine Bilirubin Urine Urobilinogen Ur Leukocyte Esterase Urine RBC (Auto) Urine Microscopic WBC Ur Squamous Epith Cells 08/30/17 08/30/17 08/30/17 16:39 18:30 18:46 WBC RBC Hgb Hct MCV MCH MCHC RDW Plt Count MPV Neut % (Auto) Lymph % (Auto) Andrews % (Auto) Eos % (Auto) Baso % (Auto) Neut # (Auto) Lymph # (Auto) Andrews # (Auto) Eos # (Auto) Baso # (Auto) PT 11.0 INR 1.0 APTT 28.5 pCO2 pO2 HCO3 ABG pH ABG Total CO2 ABG O2 Saturation ABG Base Excess David Test ABG Potassium A-a O2 Difference Sodium Chloride Glucose Lactate Vent Mode FiO2 Crit Value Called To Crit Value Called By Crit Value Read Back Blood Gas Notified Time Potassium Carbon Dioxide Anion Gap BUN Creatinine Est GFR ( Amer) Est GFR (Non-Af Amer) POC Glucose (mg/dL) Random Glucose Calcium Total Bilirubin AST ALT Alkaline Phosphatase Troponin I NT-Pro-B Natriuret Pep 1040 H Total Protein Albumin Globulin Albumin/Globulin Ratio Arterial Blood Potassium Urine Color Yellow Urine Clarity Clear Urine pH 5.0 Ur Specific [place] 1.035 H Urine Protein Negative Urine Glucose (UA) >=500 Urine Ketones Negative Urine Blood Negative Urine Nitrate Negative Urine Bilirubin Negative Urine Urobilinogen 0.2-1.0 Ur Leukocyte Esterase Neg Urine RBC (Auto) 5 H Urine Microscopic WBC 7 H Ur Squamous Epith Cells 2 08/30/17 08/30/17 08/31/17 21:51 23:55 05:11 WBC RBC Hgb Hct MCV MCH MCHC RDW Plt Count MPV Neut % (Auto) Lymph % (Auto) Andrews % (Auto) Eos % (Auto) Baso % (Auto) Neut # (Auto) Lymph # (Auto) Andrews # (Auto) Eos # (Auto) Baso # (Auto) PT INR APTT pCO2 pO2 HCO3 ABG pH ABG Total CO2 ABG O2 Saturation ABG Base Excess David Test ABG Potassium A-a O2 Difference Sodium Chloride Glucose Lactate Vent Mode FiO2 Crit Value Called To Crit Value Called By Crit Value Read Back Blood Gas Notified Time Potassium Carbon Dioxide Anion Gap BUN Creatinine Est GFR ( Amer) Est GFR (Non-Af Amer) POC Glucose (mg/dL) 309 H 194 H Random Glucose Calcium Total Bilirubin AST ALT Alkaline Phosphatase Troponin I < 0.0120 NT-Pro-B Natriuret Pep Total Protein Albumin Globulin Albumin/Globulin Ratio Arterial Blood Potassium Urine Color Urine Clarity Urine pH Ur Specific [place] Urine Protein Urine Glucose (UA) Urine Ketones Urine Blood Urine Nitrate Urine Bilirubin Urine Urobilinogen Ur Leukocyte Esterase Urine RBC (Auto) Urine Microscopic WBC Ur Squamous Epith Cells 08/31/17 08:11 WBC RBC Hgb Hct MCV MCH MCHC RDW Plt Count MPV Neut % (Auto) Lymph % (Auto) Andrews % (Auto) Eos % (Auto) Baso % (Auto) Neut # (Auto) Lymph # (Auto) Andrews # (Auto) Eos # (Auto) Baso # (Auto) PT INR APTT pCO2 pO2 HCO3 ABG pH ABG Total CO2 ABG O2 Saturation ABG Base Excess David Test ABG Potassium A-a O2 Difference Sodium Chloride Glucose Lactate Vent Mode FiO2 Crit Value Called To Crit Value Called By Crit Value Read Back Blood Gas Notified Time Potassium Carbon Dioxide Anion Gap BUN Creatinine Est GFR ( Amer) Est GFR (Non-Af Amer) POC Glucose (mg/dL) Random Glucose Calcium Total Bilirubin AST ALT Alkaline Phosphatase Troponin I 0.0120 NT-Pro-B Natriuret Pep Total Protein Albumin Globulin Albumin/Globulin Ratio Arterial Blood Potassium Urine Color Urine Clarity Urine pH Ur Specific [place] Urine Protein Urine Glucose (UA) Urine Ketones Urine Blood Urine Nitrate Urine Bilirubin Urine Urobilinogen Ur Leukocyte Esterase Urine RBC (Auto) Urine Microscopic WBC Ur Squamous Epith Cells Assessment & Plan (1) Hypercapnic respiratory failure Assessment and Plan: Acute on chronic. Status: Acute Priority: High Comment: Will apparently require NPPV in form of BiPAP for overnight at home. (2) COPD (chronic obstructive pulmonary disease) Status: Chronic Priority: High (3) CAD (coronary artery disease) Status: Chronic Priority: High (4) MERY (obstructive sleep apnea) Assessment and Plan: Mild MERY no nCPAP indicated at that time. Status: Chronic Priority: Medium - Assessment and Plan (Free Text) Plan: Continue current regimen with decreased steroid doses, LABA/LAMA twice daily. LANDON will be continued as needed. BiPAP will be maintained nightly and during the day as needed. - Date & Time Date: 08/31/17 Time: 10:16
[2017-08-31] MEDS: Potassium Chloride 20 mEq ER Tab PO SCH ×2 (10:43→17:03)
[2017-08-31] MEDS: Omega-3-Acid Ethyl Esters 1 GM Cap PO SCH ×2 (10:45→17:03)
[2017-08-31] MEDS: Pantoprazole 40 mg EC Tab PO SCH (10:46)
--- NOTE | 2017-08-31 11:32 | CP.PCM.HP ---
Past Patient History - Past Medical History & Family History Past Medical History?: Yes - Past Social History Smoking Status: Former Smoker - CARDIAC Hx Cardiac Disorders: Yes Hx Congestive Heart Failure: Yes Hx Hypertension: Yes Hx Pacemaker: No Hx Peripheral Edema: Yes - PULMONARY Hx Respiratory Disorders: Yes Hx Chronic Obstructive Pulmonary Disease (COPD): Yes Hx Emphysema: Yes Hx Pneumonia: Yes (X 4) Hx Sleep Apnea: Yes - NEUROLOGICAL Hx Neurological Disorder: Yes Other/Comment: Peripheral neuropathy - HEENT Hx HEENT Problems: No - RENAL Hx Chronic Kidney Disease: Yes Hx Kidney Stones: Yes - ENDOCRINE/METABOLIC Hx Endocrine Disorders: Yes Hx Diabetes Mellitus Type 2: Yes Hx Hyperthyroidism: No Hx Hypothyroidism: No - HEMATOLOGICAL/ONCOLOGICAL Hx Blood Disorders: Yes Hx Anemia: Yes - INTEGUMENTARY Hx Dermatological Problems: Yes Hx Basil Cell: Yes (Nose) - MUSCULOSKELETAL/RHEUMATOLOGICAL Hx Musculoskeletal Disorders: No Hx Falls: No - GASTROINTESTINAL Hx Gastrointestinal Disorders: No - GENITOURINARY/GYNECOLOGICAL Hx Genitourinary Disorders: Yes Other/Comment: Nephrolithiasis - PSYCHIATRIC Hx Psychophysiologic Disorder: No Hx Substance Use: No - SURGICAL HISTORY Hx Surgeries: Yes Hx Cholecystectomy: Yes Hx Coronary Stent: Yes Hx Tonsillectomy: Yes - ANESTHESIA Hx Anesthesia: Yes Hx Anesthesia Reactions: No Hx Malignant Hyperthermia: No Meds Allergies/Adverse Reactions: Allergies Allergy/AdvReac Type Severity Reaction Status Date / Time No Known Allergies Allergy Verified 08/30/17 15:38 Results - Vital Signs Recent Vital Signs: Last Vital Signs Temp 98.1 F 08/31/17 08:00 Pulse 74 08/31/17 08:00 Resp 18 08/31/17 08:00 BP 120/75 08/31/17 10:44 Pulse Ox 94 L 08/31/17 08:00 - Labs Result Diagrams: 08/30/17 16:39 08/30/17 16:39 Labs: Laboratory Results - last 24 hr 08/30/17 08/30/17 08/30/17 16:24 16:39 16:39 WBC 9.8 RBC 3.99 Hgb 9.6 L Hct 32.8 L MCV 82.1 D MCH 24.2 L MCHC 29.4 L RDW 17.0 H Plt Count 313 MPV 7.4 Neut % (Auto) 68.1 Lymph % (Auto) 21.9 [place] % (Auto) 8.3 Eos % (Auto) 1.3 Baso % (Auto) 0.4 Neut # (Auto) 6.7 Lymph # (Auto) 2.1 [place] # (Auto) 0.8 Eos # (Auto) 0.1 Baso # (Auto) 0.0 PT INR APTT pCO2 86 H* pO2 44 L* HCO3 39.6 H ABG pH 7.37 ABG Total CO2 52.3 H ABG O2 Saturation 90.3 L ABG Base Excess 19.5 H David Test Yes ABG Potassium 3.7 A-a O2 Difference 48.0 Sodium 138.0 141 Chloride 101.0 92 L Glucose 126 H Lactate 0.8 Vent Mode 2lnc FiO2 28.0 Crit Value Called To ozzy Sanchez md Crit Value Called By Yg bruce Crit Value Read Back Y Blood Gas Notified Time 1633 Potassium 4.1 Carbon Dioxide 43 H* Anion Gap 10 BUN 17 Creatinine 0.5 L Est GFR ( Amer) > 60 Est GFR (Non-Af Amer) > 60 POC Glucose (mg/dL) Random Glucose 121 H Calcium 9.5 Total Bilirubin 1.1 AST 27 ALT 29 Alkaline Phosphatase 65 Troponin I 0.0150 NT-Pro-B Natriuret Pep Total Protein 7.5 Albumin 4.0 Globulin 3.5 Albumin/Globulin Ratio 1.1 Arterial Blood Potassium 3.7 Urine Color Urine Clarity Urine pH Ur Specific [place] Urine Protein Urine Glucose (UA) Urine Ketones Urine Blood Urine Nitrate Urine Bilirubin Urine Urobilinogen Ur Leukocyte Esterase Urine RBC (Auto) Urine Microscopic WBC Ur Squamous Epith Cells 08/30/17 08/30/17 08/30/17 16:39 18:30 18:46 WBC RBC Hgb Hct MCV MCH MCHC RDW Plt Count MPV Neut % (Auto) Lymph % (Auto) [place] % (Auto) Eos % (Auto) Baso % (Auto) Neut # (Auto) Lymph # (Auto) [place] # (Auto) Eos # (Auto) Baso # (Auto) PT 11.0 INR 1.0 APTT 28.5 pCO2 pO2 HCO3 ABG pH ABG Total CO2 ABG O2 Saturation ABG Base Excess David Test ABG Potassium A-a O2 Difference Sodium Chloride Glucose Lactate Vent Mode FiO2 Crit Value Called To Crit Value Called By Crit Value Read Back Blood Gas Notified Time Potassium Carbon Dioxide Anion Gap BUN Creatinine Est GFR ( Amer) Est GFR (Non-Af Amer) POC Glucose (mg/dL) Random Glucose Calcium Total Bilirubin AST ALT Alkaline Phosphatase Troponin I NT-Pro-B Natriuret Pep 1040 H Total Protein Albumin Globulin Albumin/Globulin Ratio Arterial Blood Potassium Urine Color Yellow Urine Clarity Clear Urine pH 5.0 Ur Specific [place] 1.035 H Urine Protein Negative Urine Glucose (UA) >=500 Urine Ketones Negative Urine Blood Negative Urine Nitrate Negative Urine Bilirubin Negative Urine Urobilinogen 0.2-1.0 Ur Leukocyte Esterase Neg Urine RBC (Auto) 5 H Urine Microscopic WBC 7 H Ur Squamous Epith Cells 2 08/30/17 08/30/17 08/31/17 21:51 23:55 05:11 WBC RBC Hgb Hct MCV MCH MCHC RDW Plt Count MPV Neut % (Auto) Lymph % (Auto) [place] % (Auto) Eos % (Auto) Baso % (Auto) Neut # (Auto) Lymph # (Auto) [place] # (Auto) Eos # (Auto) Baso # (Auto) PT INR APTT pCO2 pO2 HCO3 ABG pH ABG Total CO2 ABG O2 Saturation ABG Base Excess David Test ABG Potassium A-a O2 Difference Sodium Chloride Glucose Lactate Vent Mode FiO2 Crit Value Called To Crit Value Called By Crit Value Read Back Blood Gas Notified Time Potassium Carbon Dioxide Anion Gap BUN Creatinine Est GFR ( Amer) Est GFR (Non-Af Amer) POC Glucose (mg/dL) 309 H 194 H Random Glucose Calcium Total Bilirubin AST ALT Alkaline Phosphatase Troponin I < 0.0120 NT-Pro-B Natriuret Pep Total Protein Albumin Globulin Albumin/Globulin Ratio Arterial Blood Potassium Urine Color Urine Clarity Urine pH Ur Specific [place] Urine Protein Urine Glucose (UA) Urine Ketones Urine Blood Urine Nitrate Urine Bilirubin Urine Urobilinogen Ur Leukocyte Esterase Urine RBC (Auto) Urine Microscopic WBC Ur Squamous Epith Cells 08/31/17 08:11 WBC RBC Hgb Hct MCV MCH MCHC RDW Plt Count MPV Neut % (Auto) Lymph % (Auto) [place] % (Auto) Eos % (Auto) Baso % (Auto) Neut # (Auto) Lymph # (Auto) [place] # (Auto) Eos # (Auto) Baso # (Auto) PT INR APTT pCO2 pO2 HCO3 ABG pH ABG Total CO2 ABG O2 Saturation ABG Base Excess David Test ABG Potassium A-a O2 Difference Sodium Chloride Glucose Lactate Vent Mode FiO2 Crit Value Called To Crit Value Called By Crit Value Read Back Blood Gas Notified Time Potassium Carbon Dioxide Anion Gap BUN Creatinine Est GFR ( Amer) Est GFR (Non-Af Amer) POC Glucose (mg/dL) Random Glucose Calcium Total Bilirubin AST ALT Alkaline Phosphatase Troponin I 0.0120 NT-Pro-B Natriuret Pep Total Protein Albumin Globulin Albumin/Globulin Ratio Arterial Blood Potassium Urine Color Urine Clarity Urine pH Ur Specific [place] Urine Protein Urine Glucose (UA) Urine Ketones Urine Blood Urine Nitrate Urine Bilirubin Urine Urobilinogen Ur Leukocyte Esterase Urine RBC (Auto) Urine Microscopic WBC Ur Squamous Epith Cells
[2017-08-31] MEDS ORDERED: MethylPREDNISolone 40 mg Vial IVP ONE (15:15)
[2017-08-31] MEDS: Enoxaparin 60 mg Syringe SC SCH (17:05)
[2017-08-31] MEDS ORDERED: methylPREDNISolone 30 MG in Sodium Chloride 0.9% 50 ML IV SCH (21:00)
[2017-09-01] MEDS: Albuterol-Ipratrop 3 mg / 0.5 (3 ml) UD INH SCH ×2 (07:45→11:28)
--- NOTE | 2017-09-01 08:39 | CARD ---
APPROVED REPORT EKG Measurement Heart [id number] <Conclusion> Normal sinus rhythm with sinus arrhythmia Left axis deviation Right bundle branch block Cannot rule out Inferior infarct, age undetermined Abnormal ECG
[2017-09-01] MEDS ORDERED: Pravastatin Sodium 20 MG TAB PO SCH (09:00)
[2017-09-01] MEDS: Pantoprazole 40 mg EC Tab PO SCH (09:03)
[2017-09-01] MEDS: Insulin Regular 100 units/ml SC SCH ×2 (09:04→13:13)
[2017-09-01] MEDS: Omega-3-Acid Ethyl Esters 1 GM Cap PO SCH (09:05)
[2017-09-01] MEDS: Enoxaparin 60 mg Syringe SC SCH (09:06)
[2017-09-01] MEDS: Potassium Chloride 20 mEq ER Tab PO SCH (09:06)
--- NOTE | 2017-09-01 10:00 | CP.PCM.PN ---
<Isaias Yeung - Last Filed: 09/01/17 12:01> Subjective - Subjective Subjective: Pt seen and examined with Dr. Crystal. Pt was laying down comfortable in bed with a Bipap machine on. Pt state that she is not having difficulty breathing on the moment but she had SOB in the middle of the night. She state that she is feeling better, and denies any headache, nausea, vomiting, chest pain, abdominal pain, diarrhea, polyuria, dysuria. Pt ate well, and feel comfortable to go home. Objective - Vital Signs/Intake and Output Vital Signs (last 24 hours): Temp Pulse Resp BP Pulse Ox 97 F L 118 H 20 114/65 93 L 09/01/17 08:00 09/01/17 08:00 09/01/17 08:00 09/01/17 09:05 09/01/17 08:00 - Medications Medications: Current Medications Albuterol/Ipratropium (Duoneb 3 Mg/0.5 Mg (3 Ml) Ud) 3 ml INH RQID COUNTS INCLUDE 234 BEDS AT [facility] Last Admin: 09/01/17 07:45 Dose: 3 ml Aspirin (Ecotrin) 81 mg PO DAILY COUNTS INCLUDE 234 BEDS AT [facility] Last Admin: 09/01/17 09:03 Dose: 81 mg Clopidogrel Bisulfate (Plavix) 75 mg PO DAILY COUNTS INCLUDE 234 BEDS AT THE [facility] Last Admin: 09/01/17 09:03 Dose: 75 mg Dextrose (Dextrose 50% Inj) 0 ml IV STAT PRN; Protocol PRN Reason: Hypoglycemia Protocol Dextrose (Glutose 15) 0 gm PO ONCE PRN; Protocol PRN Reason: Hypoglycemia Protocol Ezetimibe (Zetia) 10 mg PO DAILY COUNTS INCLUDE 234 BEDS AT THE [facility] Enoxaparin Sodium (Lovenox) 50 mg SC DAILY COUNTS INCLUDE 234 BEDS AT THE [facility] PRN Reason: Protocol Last Admin: 09/01/17 09:06 Dose: 50 mg Ergocalciferol (Drisdol 50,000 Intl Units Cap) 1 cap PO QWK COUNTS INCLUDE 234 BEDS AT [facility] Escitalopram Oxalate (Lexapro) 20 mg PO DAILY COUNTS INCLUDE 234 BEDS AT [facility] Last Admin: 09/01/17 09:05 Dose: 20 mg Ferrous Sulfate (Feosol) 325 mg PO BID COUNTS INCLUDE 234 BEDS AT [facility] Last Admin: 09/01/17 09:03 Dose: 325 mg Furosemide (Lasix) 40 mg PO DAILY COUNTS INCLUDE 234 BEDS AT [facility] Last Admin: 09/01/17 09:05 Dose: 40 mg Glipizide (Glucotrol) 5 mg PO BID COUNTS INCLUDE 234 BEDS AT [facility] Last Admin: 09/01/17 09:03 Dose: 5 mg Home Med (Dapagliflozin Propanediol [Farxiga]) 10 mg PO DAILY COUNTS INCLUDE 234 BEDS AT [facility] Last Admin: 09/01/17 09:02 Dose: 10 mg Home Med (Empagliflozin/Metformin Hcl [Synjardy Xr 12.5-1,000 Mg Tab]) 1 each PO DAILY COUNTS INCLUDE 234 BEDS AT [facility] Home Med (Glycopyrrolate/Formoterol Fum [Bevespi Aerosphere Inhaler]) 10.7 gm IH BID COUNTS INCLUDE 234 BEDS AT [facility] Home Med (Linaclotide [Linzess]) 145 mcg PO DAILY COUNTS INCLUDE 234 BEDS AT [facility] Home Med (Liraglutide [Victoza 3-Hira]) 1.8 mg SQ DAILY COUNTS INCLUDE 234 BEDS AT [facility] Home Med (Vortioxetine Hydrobromide [Trintellix]) 10 mg PO [facility] Insulin Human Regular (Humulin R) 0 units SC [facility] PRN Reason: Protocol Last Admin: 09/01/17 09:04 Dose: 2 units Bcwtv-1-Wtok Ethyl Esters (Lovaza) 2 gm PO BID COUNTS INCLUDE 234 BEDS AT [facility] Last Admin: 09/01/17 09:05 Dose: 2 gm Pantoprazole Sodium (Protonix Ec Tab) 40 mg PO DAILY COUNTS INCLUDE 234 BEDS AT [facility] Last Admin: 09/01/17 09:03 Dose: 40 mg Potassium Chloride (K-Dur 20 Meq Er Tab) 20 meq PO BID COUNTS INCLUDE 234 BEDS AT [facility] Last Admin: 09/01/17 09:06 Dose: 20 meq Pravastatin Sodium (Pravachol) 20 mg PO DAILY COUNTS INCLUDE 234 BEDS AT [facility] Last Admin: 09/01/17 09:03 Dose: 20 mg Pregabalin (Lyrica) 50 mg PO DAILY COUNTS INCLUDE 234 BEDS AT [facility] Last Admin: 09/01/17 09:23 Dose: 50 mg Valsartan (Diovan) 40 mg PO DAILY COUNTS INCLUDE 234 BEDS AT [facility] Last Admin: 09/01/17 09:03 Dose: 40 mg - Labs Labs: 08/30/17 16:39 08/30/17 16:39 PT 11.0 Seconds (9.8-13.1) 08/30/17 16:39 INR 1.0 (0.9-1.2) 08/30/17 16:39 APTT 28.5 Seconds (25.6-37.1) 08/30/17 16:39 - Constitutional Appears: Well, Non-toxic, Toxic, No Acute Distress - Head Exam Head Exam: ATRAUMATIC, NORMAL INSPECTION, NORMOCEPHALIC - Eye Exam Eye Exam: EOMI, Normal appearance, PERRL Pupil Exam: NORMAL ACCOMODATION, PERRL - ENT Exam ENT Exam: Mucous Membranes Moist, Normal Exam - Neck Exam Neck Exam: Full ROM - Respiratory Exam Respiratory Exam: Decreased Breath Sounds, NORMAL BREATHING PATTERN. absent: Accessory Muscle Use, Chest Wall Tenderness, Rales, Rhonchi, Wheezes, Respiratory Distress, Stridor - Cardiovascular Exam Cardiovascular Exam: REGULAR RHYTHM, +S1, +S2. absent: Rubs, Murmur - GI/Abdominal Exam GI & Abdominal Exam: Soft, Normal Bowel Sounds. absent: Tenderness - Extremities Exam Extremities Exam: Full ROM, Normal Capillary Refill, Normal Inspection - Neurological Exam Neurological Exam: Alert, Awake, CN II-XII Intact, Oriented x3 - Psychiatric Exam Psychiatric exam: Normal Affect, Normal Mood - Skin Skin Exam: Dry, Intact, Normal Color, Warm Assessment and Plan (1) Acute hypercapnic respiratory failure Assessment & Plan: Require NPPV in BiPAP form at home overnight Status: Acute (2) Chronic hypercapnic respiratory failure Status: Chronic (3) COPD (chronic obstructive pulmonary disease) Status: Chronic (4) CAD (coronary artery disease) Status: Chronic (5) MERY (obstructive sleep apnea) Status: Chronic - Assessment and Plan (Free Text) Assessment: a 67 yo F with pmh of COPD, CAD, MERY admitted due to COPD exacerbation Plan: Decrease steriod doses LABA/LANDON BID LANDON continue as needed BiPAP overnight, and during the day if needed. <Steven Crystal - Last Filed: 09/03/17 10:27> Subjective - Date & Time of Evaluation Date of Evaluation: 09/01/17 Time of Evaluation: 09:58 Objective - Vital Signs/Intake and Output Vital Signs (last 24 hours): Temp Pulse Resp BP Pulse Ox 97 F L 118 H 20 114/65 93 L 09/01/17 08:00 09/01/17 08:00 09/01/17 08:00 09/01/17 09:05 09/01/17 08:00 - Medications Medications: Current Medications Albuterol/Ipratropium (Duoneb 3 Mg/0.5 Mg (3 Ml) Ud) 3 ml INH RQID COUNTS INCLUDE 234 BEDS AT [facility] Last Admin: 09/01/17 07:45 Dose: 3 ml Aspirin (Ecotrin) 81 mg PO DAILY COUNTS INCLUDE 234 BEDS AT [facility] Last Admin: 09/01/17 09:03 Dose: 81 mg Clopidogrel Bisulfate (Plavix) 75 mg PO DAILY COUNTS INCLUDE 234 BEDS AT [facility] Last Admin: 09/01/17 09:03 Dose: 75 mg Dextrose (Dextrose 50% Inj) 0 ml IV STAT PRN; Protocol PRN Reason: Hypoglycemia Protocol Dextrose (Glutose 15) 0 gm PO ONCE PRN; Protocol PRN Reason: Hypoglycemia Protocol Ezetimibe (Zetia) 10 mg PO DAILY COUNTS INCLUDE 234 BEDS AT [facility] Enoxaparin Sodium (Lovenox) 50 mg SC DAILY COUNTS INCLUDE 234 BEDS AT [facility] PRN Reason: Protocol Last Admin: 09/01/17 09:06 Dose: 50 mg Ergocalciferol (Drisdol 50,000 Intl Units Cap) 1 cap PO QWK COUNTS INCLUDE 234 BEDS AT [facility] Escitalopram Oxalate (Lexapro) 20 mg PO DAILY COUNTS INCLUDE 234 BEDS AT [facility] Last Admin: 09/01/17 09:05 Dose: 20 mg Ferrous Sulfate (Feosol) 325 mg PO BID COUNTS INCLUDE 234 BEDS AT [facility] Last Admin: 09/01/17 09:03 Dose: 325 mg Furosemide (Lasix) 40 mg PO DAILY COUNTS INCLUDE 234 BEDS AT [facility] Last Admin: 09/01/17 09:05 Dose: 40 mg Glipizide (Glucotrol) 5 mg PO BID COUNTS INCLUDE 234 BEDS AT [facility] Last Admin: 09/01/17 09:03 Dose: 5 mg Home Med (Dapagliflozin Propanediol [Farxiga]) 10 mg PO DAILY COUNTS INCLUDE 234 BEDS AT [facility] Last Admin: 09/01/17 09:02 Dose: 10 mg Home Med (Empagliflozin/Metformin Hcl [Synjardy Xr 12.5-1,000 Mg Tab]) 1 each PO DAILY COUNTS INCLUDE 234 BEDS AT [facility] Home Med (Glycopyrrolate/Formoterol Fum [Bevespi Aerosphere Inhaler]) 10.7 gm IH BID COUNTS INCLUDE 234 BEDS AT [facility] Home Med (Linaclotide [Linzess]) 145 mcg PO DAILY COUNTS INCLUDE 234 BEDS AT [facility] Home Med (Liraglutide [Victoza 3-Hira]) 1.8 mg SQ DAILY COUNTS INCLUDE 234 BEDS AT [facility] Home Med (Vortioxetine Hydrobromide [Trintellix]) 10 mg PO HS COUNTS INCLUDE 234 BEDS AT [facility] Insulin Human Regular (Humulin R) 0 units SC ACHS COUNTS INCLUDE 234 BEDS AT [facility] PRN Reason: Protocol Last Admin: 09/01/17 09:04 Dose: 2 units Xjnde-4-Enhj Ethyl Esters (Lovaza) 2 gm PO BID COUNTS INCLUDE 234 BEDS AT [facility] Last Admin: 09/01/17 09:05 Dose: 2 gm Pantoprazole Sodium (Protonix Ec Tab) 40 mg PO DAILY COUNTS INCLUDE 234 BEDS AT [facility] Last Admin: 09/01/17 09:03 Dose: 40 mg Potassium Chloride (K-Dur 20 Meq Er Tab) 20 meq PO BID [place] Last Admin: 09/01/17 09:06 Dose: 20 meq Pravastatin Sodium (Pravachol) 20 mg PO DAILY [facility] Last Admin: 09/01/17 09:03 Dose: 20 mg Pregabalin (Lyrica) 50 mg PO DAILY [place] Last Admin: 09/01/17 09:23 Dose: 50 mg Valsartan (Diovan) 40 mg PO DAILY [facility] Last Admin: 09/01/17 09:03 Dose: 40 mg - Labs Labs: 08/30/17 16:39 08/30/17 16:39 PT 11.0 Seconds (9.8-13.1) 08/30/17 16:39 INR 1.0 (0.9-1.2) 08/30/17 16:39 APTT 28.5 Seconds (25.6-37.1) 08/30/17 16:39 Assessment and Plan (1) Acute hypercapnic respiratory failure Status: Acute (2) Chronic hypercapnic respiratory failure Status: Chronic (3) COPD (chronic obstructive pulmonary disease) Status: Chronic (4) CAD (coronary artery disease) Status: Chronic (5) MERY (obstructive sleep apnea) Status: Chronic
[2017-09-01 10:06] LABS: ABG ALLEN TEST YES; ARTERIAL BLOOD GAS HCO3 38.9 mmol/L (21-28); ARTERIAL BLOOD GAS HEMOGLOBIN 10.7 g/dL (11.7-17.4); ARTERIAL BLOOD GAS O2 CAPACITY 14.6 mL/dL (16-24); ARTERIAL BLOOD GAS O2 SAT 95.7 % (95-98); ARTERIAL BLOOD GAS PCO2 61 mm/Hg (35-45); ARTERIAL BLOOD GAS PH 7.47 (7.35-7.45); ARTERIAL BLOOD GAS PO2 69 mm/Hg (80-100); ARTERIAL BLOOD GAS TCO2 46.3 mmol/L (22-28)
[2017-09-01 11:25] LABS: HEMOGLOBIN 10.7 g/dL (12.0-16.0); MEAN CORPUSCULAR HEMOGLOBIN 24.4 pg (27.0-31.0); MEAN CORPUSCULAR HGB CONC 30.9 g/dL (33.0-37.0); RBC 4.37 Mil/uL (3.80-5.20); RED CELL DISTRIBUTION WIDTH 16.9 % (11.5-14.5); WHITE BLOOD COUNT 11.2 K/uL (4.8-10.8)
--- NOTE | 2017-09-01 12:02 | CP.PCM.DIS ---
Provider - Provider Date of Admission: 08/30/17 18:20 Attending physician: Uriah Joshi MD Primary care physician: Uriah Joshi Consults: Pulmonology- Dr. Crystal Time Spent in preparation of Discharge (in minutes): 30 Hospital Course - Lab Results Lab Results: Most Recent Lab Values WBC 11.2 K/uL (4.8-10.8) H 09/01/17 11:11 RBC 4.37 Mil/uL (3.80-5.20) 09/01/17 11:11 Hgb 10.7 g/dL (12.0-16.0) L 09/01/17 11:11 Hct 34.6 % (34.0-47.0) 09/01/17 11:11 MCV 79.0 fl (81.0-99.0) L D 09/01/17 11:11 MCH 24.4 pg (27.0-31.0) L 09/01/17 11:11 MCHC 30.9 g/dL (33.0-37.0) L 09/01/17 11:11 RDW 16.9 % (11.5-14.5) H 09/01/17 11:11 Plt Count 401 K/uL (130-400) H 09/01/17 11:11 MPV 7.4 fl (7.2-11.7) 08/30/17 16:39 Neut % (Auto) 68.1 % (50.0-75.0) 08/30/17 16:39 Lymph % (Auto) 21.9 % (20.0-40.0) 08/30/17 16:39 [place] % (Auto) 8.3 % (0.0-10.0) 08/30/17 16:39 Eos % (Auto) 1.3 % (0.0-4.0) 08/30/17 16:39 Baso % (Auto) 0.4 % (0.0-2.0) 08/30/17 16:39 Neut # (Auto) 6.7 K/uL (1.8-7.0) 08/30/17 16:39 Lymph # (Auto) 2.1 K/uL (1.0-4.3) 08/30/17 16:39 [place] # (Auto) 0.8 K/uL (0.0-0.8) 08/30/17 16:39 Eos # (Auto) 0.1 K/uL (0.0-0.7) 08/30/17 16:39 Baso # (Auto) 0.0 K/uL (0.0-0.2) 08/30/17 16:39 PT 11.0 Seconds (9.8-13.1) 08/30/17 16:39 INR 1.0 (0.9-1.2) 08/30/17 16:39 APTT 28.5 Seconds (25.6-37.1) 08/30/17 16:39 pCO2 61 mm/Hg (35-45) H 09/01/17 10:00 pO2 69 mm/Hg (80-100) L 09/01/17 10:00 HCO3 38.9 mmol/L (21-28) H 09/01/17 10:00 ABG pH 7.47 (7.35-7.45) H 09/01/17 10:00 ABG Total CO2 46.3 mmol/L (22-28) H 09/01/17 10:00 ABG O2 Saturation 95.7 % (95-98) 09/01/17 10:00 ABG O2 Content 14.0 ML/dL (15-23) L 09/01/17 10:00 ABG Base Excess 18.0 mmol/L (-2.0-3.0) H 09/01/17 10:00 ABG Hemoglobin 10.7 g/dL (11.7-17.4) L 09/01/17 10:00 ABG Carboxyhemoglobin 1.6 % (0.5-1.5) H 09/01/17 10:00 POC ABG HHb (Measured) 4.2 % (0.0-5.0) 09/01/17 10:00 ABG Methemoglobin 1.8 % (0.0-3.0) 09/01/17 10:00 ABG O2 Capacity 14.6 mL/dL (16-24) L 09/01/17 10:00 David Test Yes 09/01/17 10:00 ABG Potassium 3.7 mmol/L (3.6-5.2) 08/30/17 16:24 A-a O2 Difference 83.0 mm/Hg 09/01/17 10:00 Hgb O2 Saturation 92.4 % (95.0-98.0) L 09/01/17 10:00 Sodium 138.0 mmol/L (132-148) 08/30/17 16:24 Chloride 101.0 mmol/L (98-107) 08/30/17 16:24 Glucose 126 mg/dL (65-105) H 08/30/17 16:24 Lactate 0.8 mmol/L (0.7-2.1) 08/30/17 16:24 Vent Mode 2lnc 08/30/17 16:24 FiO2 32.0 % 09/01/17 10:00 Crit Value Called To ozzy Sanchez md 08/30/17 16:24 Crit Value Called By Yg bruce 08/30/17 16:24 Crit Value Read Back Y 08/30/17 16:24 Blood Gas Notified Time 1633 08/30/17 16:24 Sodium 141 mmol/l (132-148) 08/30/17 16:39 Potassium 4.1 MMOL/L (3.6-5.0) 08/30/17 16:39 Chloride 92 mmol/L (98-107) L 08/30/17 16:39 Carbon Dioxide 43 mmol/L (22-30) H* 08/30/17 16:39 Anion Gap 10 (10-20) 08/30/17 16:39 BUN 17 mg/dl (7-17) 08/30/17 16:39 Creatinine 0.5 mg/dl (0.7-1.2) L 08/30/17 16:39 Est GFR ( Amer) > 60 08/30/17 16:39 Est GFR (Non-Af Amer) > 60 08/30/17 16:39 POC Glucose (mg/dL) 178 mg/dL (65-110) H 09/01/17 11:11 Random Glucose 121 mg/dL (65-105) H 08/30/17 16:39 Calcium 9.5 mg/dL (8.4-10.2) 08/30/17 16:39 Total Bilirubin 1.1 mg/dl (0.2-1.3) 08/30/17 16:39 AST 27 U/L (14-36) 08/30/17 16:39 ALT 29 U/L (9-52) 08/30/17 16:39 Alkaline Phosphatase 65 U/L (38-126) 08/30/17 16:39 Troponin I 0.0150 ng/mL (0.00-0.120) 08/31/17 16:30 NT-Pro-B Natriuret Pep 1040 pg/ml (0-900) H 08/30/17 18:30 Total Protein 7.5 G/DL (6.3-8.2) 08/30/17 16:39 Albumin 4.0 g/dL (3.5-5.0) 08/30/17 16:39 Globulin 3.5 gm/dL (2.2-3.9) 08/30/17 16:39 Albumin/Globulin Ratio 1.1 (1.0-2.1) 08/30/17 16:39 Arterial Blood Potassium 3.7 mmol/L (3.6-5.2) 08/30/17 16:24 Urine Color Yellow (YELLOW) 08/30/17 18:46 Urine Clarity Clear (Clear) 08/30/17 18:46 Urine pH 5.0 (5.0-8.0) 08/30/17 18:46 Ur Specific Peterson 1.035 (1.003-1.030) H 08/30/17 18:46 Urine Protein Negative mg/dL (NEGATIVE) 08/30/17 18:46 Urine Glucose (UA) >=500 mg/dL (Normal) 08/30/17 18:46 Urine Ketones Negative mg/dL (NEGATIVE) 08/30/17 18:46 Urine Blood Negative (NEGATIVE) 08/30/17 18:46 Urine Nitrate Negative (NEGATIVE) 08/30/17 18:46 Urine Bilirubin Negative (NEGATIVE) 08/30/17 18:46 Urine Urobilinogen 0.2-1.0 mg/dL (0.2-1.0) 08/30/17 18:46 Ur Leukocyte Esterase Neg Javid/uL (Negative) 08/30/17 18:46 Urine RBC (Auto) 5 /hpf (0-3) H 08/30/17 18:46 Urine Microscopic WBC 7 /hpf (0-5) H 08/30/17 18:46 Ur Squamous Epith Cells 2 /hpf (0-5) 08/30/17 18:46 - Hospital Course Hospital Course: 67 yo F with PMH COPD, HTN, CAD, and MERY, former smoker, was admitted due to worsening SOB, CO2 retention. and increased somnolence for 5 days. She is on home regimen of glycopyrrolate/formoterol (Bevespi) 2 puffs every 12 hours. While admitted, she has responded well to the use of NPPV with BiPAP ventilation. CXR showed no infiltrates or pleural effusions. This morning she was examined at bedside with Dr. Joshi. She was awake, alert, not in respiratory distress, and reported feeling well and ready to go home. She is to continue with BIPAP at night as prescribed by food checker- Dr. Crystal. She was also seen by electronic controls repairer supervisor Dr. Mcguire- her BP is well controlled, and he will schedule a stress test as outpatient (last one in 2014 wnl). She is to continue all her home medications upon discharge. Discharge Exam - Head Exam Head Exam: ATRAUMATIC, NORMAL INSPECTION, NORMOCEPHALIC - Eye Exam Eye Exam: Normal appearance - ENT Exam ENT Exam: Mucous Membranes Moist - Respiratory Exam Respiratory Exam: Clear to PA & Lateral, NORMAL BREATHING PATTERN, UNREMARKABLE. absent: Respiratory Distress - Cardiovascular Exam Cardiovascular Exam: REGULAR RHYTHM - Extremities Exam Extremities exam: normal inspection - Neurological Exam Neurological exam: Alert, Oriented x3 - Psychiatric Exam Psychiatric exam: Normal Mood - Skin Skin Exam: Dry, Normal Color, Warm Discharge Plan - Follow Up Plan Condition: GUARDED Disposition: HOME/ ROUTINE Instructions: Hypertension (DC), Hypertension (GEN) Referrals: Uriah Joshi MD [Family Provider] - Mehrdad Mcguire MD [Staff Provider] - Steven Crystal MD [Staff Provider] -
[2017-09-01 12:07] LABS: BLOOD UREA NITROGEN 23 mg/dl (7-17); CALCIUM 9.3 mg/dL (8.4-10.2); GFR AFRICAN-AMERICAN > 60; GFR NON-AFRICAN AMERICAN > 60
[2017-09-01 12:35] VITALS: BP 110/67; PULSE 122; RESP 18; TEMP 98.2; O2SAT 92
--- NOTE | 2017-09-05 14:48 | PQF ---
PROVIDER RESPONSE TEXT: No chf, copd exacerbation REVIEWER QUERY TEXT: CHF Acuity and Type Congestive Heart Failure is documented in the Medical Record. Please document the type and acuity (in cludes probable or suspected) Such as: Type: -- Systolic -- Diastolic -- Combined -- Other, please specify Acuity: -- Acute -- Chronic -- Acute on chronic -- Other, please specify The patient's Clinical Indicators include: Admitted with dyspnea and lethargy and found to be hypercapnic. PMH template states CHF: Yes. Pro BNP on admission 1040. CXR: No active disease. ECHO from 2016: LV systolic function is normal. Grade I-abnormal relaxation pattern. R atrium mildy d ilated, Mild to moderate TR and pulmonary HTN. Given IV Lasix in the ER and maintained on po Lasix. Query created by: Clementina Wiley on 09/02/2017 6:31 AM Electronically signed by: Uriah Joshi MD 09/05/2017 2:46 PM
== END 2017-09-01 14:31 | disposition home or self-care (01) | DRG 189 ==
LOC: H.ER 15:36 → H.ERHOLD 18:20 → H.TEL 20:11
PROVIDERS: ADMIT Family Medicine; ATTEND Family Medicine
PROC: 5A09457 Assistance with Respiratory Ventilation, 24-96 Consecutive Hours, Continuous Positive Airway Pressure (ICD-10-PCS; principal; 2017-08-30)
DX: J96.22 Acute and chronic respiratory failure with hypercapnia (principal); J44.1 Chronic obstructive pulmonary disease with (acute) exacerbation; G47.33 Obstructive sleep apnea (adult) (pediatric); I25.10 Atherosclerotic heart disease of native coronary artery without angina pectoris; Z99.81 Dependence on supplemental oxygen; Z95.5 Presence of coronary angioplasty implant and graft; Z87.891 Personal history of nicotine dependence; N18.9 Chronic kidney disease, unspecified; E11.42 Type 2 diabetes mellitus with diabetic polyneuropathy; R19.7 Diarrhea, unspecified; E11.22 Type 2 diabetes mellitus with diabetic chronic kidney disease; I12.9 Hypertensive chronic kidney disease with stage 1 through stage 4 chronic kidney disease, or unspecified chronic kidney disease